=== PATIENT | female | born 1960 | race Caucasian/White ===

== ENCOUNTER 2019-04-22 12:27 | Emergency (ER) | payer SELFPAY ==
[~2019-04-22] VITALS: Ht 157.5 cm; Wt 55.4 kg
[2019-04-22 12:35] VITALS: BP 160/99
--- NOTE | 2019-04-22 14:21 | NUR ---
PT SEEN AND EXAMINED BY EDPA, REPORTING DECREASED HEARING BILATERALLY HOWEVER ABLE TO HEAR STAFF EASILY. PT GIVEN DC INSTRUCTIONS AND SCRIPT, EDUCATED REGARDING RX FOR AMOXICILLIN. .PT A&O, RESPS EVEN AND UNLABORED, AMB TO DC DESK WITH STEADY GAIT. ALL QUESTIONS ANSWERED.
== END 2019-04-22 14:23 | disposition home or self-care (01) ==
LOC: ED 14:15
DX: H66.002 Acute suppurative otitis media without spontaneous rupture of ear drum, left ear (principal); H65.01 Acute serous otitis media, right ear; R09.81 Nasal congestion
CPT/HCPCS: 99283